=== PATIENT | female | born 1925 | race Caucasian/White ===

== ENCOUNTER 2016-06-12 17:03 | Emergency (ER) | payer MEDICARE ==
--- NOTE | ~2016-06-12 | CR72 ---
[facility] A Service of [facility] & [facility] RADIOLOGY TEXT RESULTS PATIENT: YAYO ESCOBEDO LOCATION: [facility] : [birth year] UNIT #: [id number] AGE: [address]: Rhoda Ching MD SEX: F ORDER DR: [id number] [facility] [address] [place], [place] [address] [id number] E MR#: [id number] Acc #: [id number] NAME: YAYO ESCOBEDO : 1925 SEX: F STUDY DATE/TIME: 06/12/2016 16:47 UNIT: [facility] ROOM: STUDY DESCRIPTION: CR Chest Single View Portable Attending Physician: Rhoda Ching M.D. Ordering Physician: Rhoda Ching M.D. Primary Care Physician: Johana Gomez Aprn MEDICAL IMAGING REPORT This report is preliminary unless electronic signature is present EXAM Portable chest radiograph. DATE OF EXAM 06/12/2016 INDICATION Shortness of air. FINDINGS Comparison is made to a prior study from April 14, 2016. Cardiomegaly is identified without any evidence of vascular congestion. There is elevation of the right hemidiaphragm with some associated bronchovascular crowding. I am not convinced I can see any acute infiltrates. There is no pneumothorax or pleural effusion. There is some scarring noted at the left lung base. Left-sided pacemaker is present. Dictated by... Deepa Cuba M.D. THIS IS AN ELECTRONICALLY VERIFIED REPORT Deepa Cuba M.D. at 06/13/2016 4:30 PM AFF/jt TD: 06/12/2016 21:31 JOB #: [id number] MEDICAL IMAGING REPORT Page 1 of 1 COPY
--- NOTE | ~2016-06-12 | EKG ---
PATIENT: YAYO ESCOBEDO UNIT #: [id number] Ventricular Rate: 62 BPM Atrial Rate: 62 BPM P-R Interval: 292 ms QRS Duration: 102 ms Q-T Interval: 414 ms QTC Calculation(Bezet): 420 ms Calculated R [place]: -24 degrees Calculated T [place]: -11 degrees Diagnosis Line: Atrial-paced rhythm with prolonged AV conduction Diagnosis Line: Minimal voltage criteria for LVH, may be normal Diagnosis Line: variant Diagnosis Line: Abnormal ECG Diagnosis Line: No previous ECGs available Diagnosis Line: Confirmed by KIKO POOL MD ([id number]) on 06/13/2016 Diagnosis Line: 7:16:06 PM INTERPRETING MD: CORINE MALONEY
[~2016-06-12 17:03] MED LIST: ACETAMINOPHEN PO; ACETAMINOPHEN500 M3 PO; ACIDOPHILUS LAC1 CAP PO; ADVIL100 MG PO; ALBUTEROL17 GM INH; ALOE VERA PO; ALOE VERA1 CAP PO; ALPRAZOLAM PO; ALPRAZOLAM0.5 MG PO; ALPRAZOLAM1 MG PO; ASPIRIN EC81 M1 PO; ASPIRIN PO; ASPIRIN81 M1 PO; ASPIRIN81 MG PO; BENICAR20 MG PO; BENZONATATE PO; BETAPACE AF160 MG PO; BETAPACE PO; BETAPACE80 MG PO; CIPRO PO; CLOPIDOGREL75 MG PO; COMBIVENT U/D3 ML INH; COMBIVENT14.7 GM INH; COUMADIN PO; CRESTOR5 MG PO; DULCOLAX5 MG; DULCOLAX5 MG PO; ELIQUIS2.5 MG PO; GABAPENTIN400 M2 PO; HYDRALAZINE HCL50 MG PO; KEFLEX500 M1 PO; LEVAQUIN250 MG PO; LEVOFLOXACIN500 MG PO; LEVOTHROID25 MCG PO; LEVOTHYROXINE25 MC1 PO; LISINOPRIL PO; LISINOPRIL10 MG PO; LOPRESSOR PO; MACROBID100 MG PO; MACRODANTIN50 MG PO; MEDROL DOSEPAK4 MG PO; METOPROLOL TART25 MG PO; MILK OF MAGNESIA PO; MIRALAX17 GM PO; MULTI-VITAMIN1 EAC1 PO; NEURONTIN100 MG PO; OMEPRAZOLE20 M2 PO; PANTOPRAZOLE SO40 MG PO; PATIENT'S PHARMACY; PHENERGAN25 M1 PO; PHYSICIAN; PREDNISONE PO; PRILOSEC PO; PYRIDIUM PO; SIMVASTATIN20 MG PO; SOMINEX PO; SOTALOL AF80 MG PO; STOOL SOFTENER100 M1 PO; SYNTHROID PO; SYNTHROID25 MCG PO; TIGAN PO; TIROSINT25 MCG PO; TOPROL XL PO; TRAMADOL HCL50 M2 PO; TRICOR145 MG PO; TRIMPEX100 MG PO; UNISOM25 M1 PO; UNISOM50 M1 PO; VAGIFEM10 MCG VG; VAGIFEM25 MCG VAG; VALTREX500 MG PO; VIBRAMYCIN100 M1 PO; VITAMIN B12-FO1 EACH PO; XANAX1 MG PO; XOPENEX NEB; XOPENEX0.63 MG/3 IH; XOPENEX1.25 MG/0. NEB; ZOFRAN ODT4 MG PO
[2016-06-12 17:16] LABS: BASOPHIL% 0.4 % (0-2.5); EOSINOPHIL% 0.8 % (0.0-7.0); HEMATOCRIT 39.1 % (35.0-45.0); HEMOGLOBIN 12.7 gm/dL (12.0-16.0); LYMPHOCYTE% 48.2 % (17.0-45.0); MEAN CELL VOLUME 81.8 FL (83-96); MEAN CORPUSCULAR HEMOGLOBIN 26.5 PG (28-34); MEAN CORPUSCULAR HGB CONC 32.4 g/dL (30-36); MEAN PLATELET VOLUME 7.9 FL (6.5-11.5); MONOCYTE# 0.5 X10e3 (0-1.0); MONOCYTE% 12.5 % (3.0-12.0); NEUTROPHIL# 1.6 X10e3 (1.5-7.1); NEUTROPHIL% 38.1 % (40-75); PLATELET COUNT 176 X10e3 (140-420); RED BLOOD COUNT 4.78 X10e (3.90-5.30); RED CELL DISTRIBUTION WIDTH 21.7 % (11.0-15.5); WHITE BLOOD COUNT 4.2 X10e3 (4.0-10.5)
[2016-06-12 17:19] LABS: DIFF IND NO
[2016-06-12 17:52] LABS: ALBUMIN SERUM 3.5 g/dL (3.5-5.0); BILIRUBIN, DIRECT 0.1 mg/dL (0.0-0.2); BILIRUBIN,INDIRECT 0.6 mg/dL (0.0-0.9); BILIRUBIN,TOTAL 0.7 mg/dL (0.2-2.0); CREATININE SERUM 0.5 mg/dL (0.6-1.4); GLOM FILT RATE Estimated 85.8 mL/min (>60); POTASSIUM 4.2 mmol/L (3.5-5.1); PROTEIN TOTAL SERUM 6.7 g/dL (6.0-8.3)
[2016-06-12 18:20] LABS: POC - CKMB <1.0 ng/mL (0.0-7.9); POC - TROPONIN <0.05 ng/mL (<=0.05)
[2016-06-12 19:21] LABS: POC - CKMB <1.0 ng/mL (0.0-7.9); POC - TROPONIN <0.05 ng/mL (<=0.05)
[2016-06-12 20:06] LABS: INFLUENZA A NEG (NEG); INFLUENZA B NEG (NEG)
[2016-10-15] MEDS ORDERED: AMLODIPINE BESYL5 MG (11:44)
[2016-10-15] MEDS ORDERED: SOTALOL AF80 M1 PO (11:45)
[2016-10-15] MEDS ORDERED: SYNTHROID25 MCG PO (11:45)
[2016-10-15] MEDS ORDERED: ZOCOR10 MG PO (11:46)
[2016-10-15] MEDS ORDERED: OYSTER SHELL C1 EAC1 PO (11:46)
[2016-10-15] MEDS ORDERED: HYDRALAZINE HCL50 MG PO (11:46)
[2016-10-15] MEDS ORDERED: ROPINIROLE HC0.25 MG PO (11:47)
[2016-10-15] MEDS ORDERED: OMEPRAZOLE40 M1 PO (11:47)
[2016-10-15] MEDS ORDERED: NON-ASPIRIN PA500 M1 PO (11:48)
[2016-10-15] MEDS ORDERED: COUMADIN (11:50)
== END 2016-06-12 20:35 | disposition home or self-care (01) ==
LOC: CED 17:03
PROVIDERS: Emergency Medicine
DX: J06.9 Acute upper respiratory infection, unspecified (principal); I48.91 Unspecified atrial fibrillation; I10 Essential (primary) hypertension; J44.9 Chronic obstructive pulmonary disease, unspecified; E78.5 Hyperlipidemia, unspecified; E03.9 Hypothyroidism, unspecified; K21.9 Gastro-esophageal reflux disease without esophagitis; Z90.710 Acquired absence of both cervix and uterus; Z90.49 Acquired absence of other specified parts of digestive tract; Z98.890 Other specified postprocedural states
CPT/HCPCS: 36415; 71010; 80048; 80076; 82553; 83880; 84484; 85025; 87804; 93005; 96361; 96374; 96375; 99284; J2270; J2405

== ENCOUNTER → 2016-10-15 | Outpatient (CLI) | payer MEDICARE ==
[~2016-10-15] MED LIST changes: +AMLODIPINE BESYL5 MG; +COUMADIN; +NON-ASPIRIN PA500 M1 PO; +OMEPRAZOLE40 M1 PO; +OYSTER SHELL C1 EAC1 PO; +ROPINIROLE HC0.25 MG PO; +SOTALOL AF80 M1 PO; +ZOCOR10 MG PO
--- NOTE | ~2016-10-15 | US84 ---
[id number] [facility]. [facility] [address]. [place], [place] [address] [id number] O MR#: [id number] Acc #: [id number] NAME: YAYO ESCOBEDO : 1925 SEX: F STUDY DATE/TIME: 10/15/2016 10:49 UNIT: [facility] ROOM: STUDY DESCRIPTION: US LE Veins Complete Daljit Stdy Attending Physician: Uday Nunez M.D. Referring Physician: Uday Nunez M.D. Ordering Physician: Uday Nunez M.D. Primary Care Physician: Johana Gomez Aprn MEDICAL IMAGING REPORT This report is preliminary unless electronic signature is present EXAM Bilateral leg vein Doppler 10/15 INDICATIONS Bilateral leg swelling intermittently for the last 3 months. TECHNIQUE Venous ultrasound examination of both lower extremities was performed using grayscale, spectral Doppler and color flow Doppler imaging. FINDINGS The examination is negative. There is no evidence of deep venous thrombus from the groin to the lower calf bilaterally. Visualized greater saphenous veins are also patent. IMPRESSION Negative examination. No evidence of lower extremity deep venous thrombosis. Dictated by... Abundio Beverly Jr., M.D. THIS IS AN ELECTRONICALLY VERIFIED REPORT Abundio Beverly Jr., M.D. at 10/17/2016 2:25 PM GE/pelon TD: 10/15/2016 16:47 JOB #: [id number] MEDICAL IMAGING REPORT Page 1 of 1 COPY
--- NOTE | ~2016-10-15 | CR63 ---
[facility] A Service of [facility] RADIOLOGY TEXT RESULTS PATIENT: YAYO ESCOBEDO LOCATION: [facility] : [birth year] UNIT #: [id number] AGE: [address]: Uday Nunez MD SEX: F ORDER DR: [id number] [facility] [address] [place], [place] [address] [id number] O MR#: [id number] Acc #: [id number] NAME: YAYO ESCOBEDO : 1925 SEX: F STUDY DATE/TIME: 10/15/2016 10:14 UNIT: [facility] ROOM: STUDY DESCRIPTION: CR Chest 2 View Attending Physician: Uday Nunez M.D. Referring Physician: Uday Nunez M.D. Ordering Physician: Uday Nunez M.D. Primary Care Physician: Johana Gomez Aprn MEDICAL IMAGING REPORT This report is preliminary unless electronic signature is present EXAM Chest 10/15/2016 HISTORY 89-year-old woman preop clearance for right total knee arthroplasty. Osteoarthritis right knee. COMPARISON Chest 06/12/2016. FINDINGS PA and lateral chest views show mild stable cardiomegaly and mild aortic ectasia. Permanent pacemaker is positioned on the left with dual pacing leads well located. Bilateral lungs are expanded and clear. Partial eventration right hemidiaphragm is again noted. Generalized demineralization with mild compression of a single mid thoracic vertebrae. IMPRESSION No acute chest finding. Mild cardiac enlargement and aortic ectasia with dual pacing leads well positioned. Chronic eventration right hemidiaphragm. Dictated by... Andrea Pearce M.D. THIS IS AN ELECTRONICALLY VERIFIED REPORT Andrea Pearce M.D. at 10/15/2016 3:13 PM NOÉ/pelon TD: 10/15/2016 15:10 JOB #: [id number] MEDICAL IMAGING REPORT [facility] A Service [facility] RADIOLOGY TEXT RESULTS PATIENT: YAYO ESCOBEDO LOCATION: [facility] : [birth year] UNIT #: [id number] AGE: [address]: Uday Nunez MD SEX: F ORDER DR: Page 1 of 1 COPY
--- NOTE | ~2016-10-15 | CO ---
Unit #: [id number] #: [id number] Patient: YAYO ESCOBEDO [place] [id number] [address] [address] [id number] O MR#: [id number] NAME: YAYO ESCOBEDO ROOM: Age: 89 Sex: F Admission Date: 10/15/2016 : 1925 Attending Physician: Uday Nunez M.D. Primary Care Physician: Johana Gomez Aprn Consultation Date: 10/15/2016 CONSULTATION REPORT REASON FOR CONSULTATION Preoperative medical evaluation prior to right total knee arthroplasty scheduled by Dr. Nunez for 10/27/2016. HISTORY OF PRESENT ILLNESS The patient is an 89-year-old female, who presents to preprocedural screening for the reasons indicated above. She reports pain in her right knee at the time of the interview. She denies dyspnea on exertion, orthopnea, PND, or snoring. She denies upper chest, upper back, arm, neck, jaw pain or pressure. Denies lightheadedness and dizziness. Denies presyncope or syncope. She denies heart palpitations, although she has a history of paroxysmal atrial fibrillation per review of records in [facility]. She denies history of myocardial infarction, congestive heart failure, CVA, TIA, kidney disease, and diabetes. She has been evaluated by Dr. Nunez, and scheduled for the above-referenced procedure. PAST MEDICAL HISTORY 1. Osteoarthritis primary of the right knee. 2. History of recurrent urinary tract infections. 3. Hypertension. 4. Hypothyroidism. 5. Hyperlipidemia. 6. Chronic Coumadin therapy, managed by [facility], who is her primary care provider. 7. Coronary artery disease, without history of myocardial infarction. 8. History of colon cancer. 9. Anxiety. 10. 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 11. Questionable history of DVT. 12. COPD. PAST SURGICAL HISTORY 1. Permanent pacemaker insertion in 2012. 2. Hysterectomy. 3. Appendectomy. 4. Cholecystectomy. 5. Right hemicolectomy in 2014. ALLERGIES Penicillins, cause swellings; sulfa, unknown reaction; propoxyphene, unknown reaction; Cipro causes fatigue. CURRENT MEDICATIONS Unit #: [id number] #: [id number] Patient: YAYO ESCOBEDO 1. Amlodipine besylate 5 mg p.o. b.i.d. 2. Sotalol AF 40 mg p.o. b.i.d. 3. Synthroid 25 mcg p.o. daily. 4. Hydralazine HCL 50 mg p.o. daily. 5. Oyster shell calcium/vitamin D 1 p.o. daily. 6. Zocor 10 mg p.o. daily. 7. Ropinirole 0.25 mg p.o. at bedtime. 8. Omeprazole 40 mg p.o. at bedtime. 9. Non-aspirin pain reliever 500 mg p.o. q.4 hours p.r.n. pain. 10. Coumadin 10 mg on Thursday, Thursday, and Thursday; and 7.5 mg on Thursday, , Thursday, and Thursday. SOCIAL HISTORY Denies tobacco use, EtOH use, and illicit drug use. FAMILY HISTORY Per review of Dr. Nunez's office notes, diabetes, hypertension, high cholesterol, and coronary artery disease. REVIEW OF SYSTEMS A 10-point review of systems is conducted and otherwise negative except as indicated under history of present illness above. PHYSICAL EXAMINATION GENERAL: An 89-year-old female, awake, alert, in wheelchair, in no acute distress. VITAL SIGNS: Temperature 97.6, heart rate 61, respiratory rate 18, blood pressure 167/69, oxygen saturation 98% on room air. HEENT: Atraumatic and normocephalic. Sclerae are anicteric. No discharge from eyes, ears, or nares. LYMPH: No preauricular, postauricular, tonsillar, submental, anterior or posterior cervical adenopathy. ENDOCRINE: No thyromegaly, thyroid nodules, or tenderness. RESPIRATORY: Clear to auscultation in all maloney bilaterally without wheezes, rhonchi, or rales. CARDIOVASCULAR: S1 and S2. Regular rate and rhythm without murmur or rub. GI: Bowel sounds are positive x4. Soft, nontender, nondistended. EXTREMITIES: 1+ bilateral lower extremity edema without cyanosis or clubbing. MUSCULOSKELETAL: Strength 5/5 in all extremities bilaterally to flexion and extension. NEUROLOGIC: Alert and oriented x3. Speech clear. Follows directions during examination. DIAGNOSTIC STUDIES LABORATORY RESULTS: WBC 6.8, hemoglobin 13.0, hematocrit 39.0, platelets 203,000. Sodium 140, potassium 4.2, chloride 104, CO2 of 29, glucose 114, BUN 15, creatinine 0.7, calcium 9.2, AST 28, ALT 23, alkaline phosphatase 59, bilirubin total 0.7, total protein 6.7, albumin 3.7, PT 16.3, INR 1.5. Blood type B positive, antibody screen negative. Urinalysis; leukocyte esterase trace, nitrite positive, blood negative, rbc's negative, wbc's 5 to 10, bacteria 4+, squamous cells none seen. Urine culture and sensitivity pending at this time. MRSA nasal swab report pending at this time. IMAGING STUDIES: Two-view chest x-ray report pending at this time. Unit #: [id number] #: [id number] Patient: YAYO SECOBEDO CARDIOVASCULAR STUDIES: 12-lead EKG tracing pending at this time. Bilateral lower extremity duplex venous Doppler result pending at this time. IMPRESSION The patient is an 89-year-old female, who presents to preprocedural screening. 1. Preoperative medical evaluation prior to right total knee arthroplasty. The patient's Valdez revised cardiac risk index is equal to 0.4% based on no risk factors and represents rate of cardiac , nonfatal myocardial infarction, nonfatal cardiac arrest according to number of risk factors. This has been discussed in detail with the patient. She wishes to proceed with surgery as scheduled at this time. 2. Urinary tract infection. Urine culture and sensitivity report is pending at this time. I have called a prescription for Macrobid 100 mg one p.o. b.i.d. x7 days #14, no refills, to her pharmacy [facility] [place] at [phone]. The patient states that she has her medications delivered to her home and that she will receive it tomorrow. She has been advised to start the medication when she receives it. We will follow urine culture and sensitivity results. 3. Hypertension. Blood pressure is stable. Continue current medications postoperatively and adjust accordingly based on blood pressure and renal function. 4. Hypothyroidism. Check TSH and free T4 of blood in lab today. Continue current dose of Synthroid. 5. Hyperlipidemia. 6. Chronic Coumadin therapy. The patient's INR is 1.5 today. Again, this patient's Coumadin is being monitored and dosed by [facility]. 7. Coronary artery disease, without history of myocardial infarction. The patient has been evaluated by Dr. Russell, and there is a note with the patient's chart dated 09/24/2016 that the patient is clear for knee surgery at acceptable cardiac risk. 8. History of colon cancer. 9. Anxiety. 10. History of paroxysmal atrial fibrillation. We will recommend telemetry postoperatively. 11. Chronic obstructive pulmonary disease, stable. We will add inhaled bronchodilators and mucolytics postoperatively in addition to IS. Thank you for allowing us to participate in the care of this patient. We will gladly follow her for postop medical management, pending order of Dr. Nunez and results of pending diagnostic studies. Dictated by... Olamide Sanford/dontae TD: 10/16/2016 12:42 JOB #: [id number] Unit #: [id number] #: [id number] Patient: YAYO ESCOBEDO CONSULTATION REPORT Page 1 of 1 X Micki Mendez APRN CONSULTATION REPORT
[2016-10-15 11:34] LABS: MEAN CELL VOLUME 82.7 FL (83-96); MEAN CORPUSCULAR HEMOGLOBIN 27.5 PG (28-34); MEAN CORPUSCULAR HGB CONC 33.3 g/dL (30-36); RED BLOOD COUNT 4.72 X10e (3.90-5.30); RED CELL DISTRIBUTION WIDTH 17.8 % (11.0-15.5); WHITE BLOOD COUNT 6.8 X10e3 (4.0-10.5)
[2016-10-15 11:46] LABS: INR 1.5; PROTHROMBIN TIME (PATIENT) 16.3 SECONDS (10.0-11.7)
[2016-10-15 12:09] LABS: ALBUMIN SERUM 3.7 g/dL (3.5-5.0); BILIRUBIN,TOTAL 0.7 mg/dL (0.2-2.0); BUN/CREATININE RATIO 21.42; CALCIUM SERUM 9.2 mg/dL (8.4-10.2); CREATININE SERUM 0.7 mg/dL (0.6-1.4); GLOM FILT RATE Estimated 76.8 mL/min (>60); POTASSIUM 4.2 mmol/L (3.5-5.1); PROTEIN TOTAL SERUM 6.7 g/dL (6.0-8.3)
[2016-10-15 12:43] LABS: URINE APPEARANCE CLEAR; URINE BILIRUBIN NEG (NEG); URINE BLOOD NEG (NEG); URINE COLOR YELLOW; URINE GLUCOSE NEG (NEG); URINE KETONE NEG (NEG); URINE LEUKOCYTE ESTERASE TRACE (NEG); URINE NITRATE POS (NEG); URINE PH 6.5 (5-8); URINE PROTEIN NEG (NEG); URINE SPECIFIC GRAVITY 1.008 (1.003-1.035); URINE UROBILINOGEN 0.2 MG/DL (NEG)
[2016-10-15 12:44] LABS: CULTURE INDICATED? YES; URBCS1 AUWI 0-2 /[HPF] (0-2); URINE BACTERIA AUWI 4+ (NEGATIVE); URINE SQUAMOUS EPITHELIAL CELL NONE SEEN /[HPF]
[2016-10-15 12:47] LABS: URINE SOURCE CLEAN CATCH
== END | disposition home or self-care (01) ==
LOC: CAMB 09:37
PROVIDERS: Orthopaedic Surgery
DX: Z01.818 Encounter for other preprocedural examination (principal); M17.11 Unilateral primary osteoarthritis, right knee; Z88.2 Allergy status to sulfonamides; Z88.1 Allergy status to other antibiotic agents; Z91.040 Latex allergy status; I51.7 Cardiomegaly; I77.819 Aortic ectasia, unspecified site
CPT/HCPCS: 36415; 71020; 80053; 81003; 85027; 85610; 86850; 86900; 86901; 87070; 87086; 87088; 87186; 93970

== ENCOUNTER 2016-10-27 08:12 | Inpatient (IN) | payer MEDICARE ==
[~2016-10-27] VITALS: Ht 160 cm; Wt 71.0 kg
--- NOTE | ~2016-10-27 | OR ---
Unit #: [id number] #: [id number] Patient: YAYO ESCOBEDO [id number] [address] [place], [place] [address] [id number] I MR#: [id number] NAME: YAYO ESCOBEDO ROOM: [facility] Date of Procedure: 10/27/2016 Admission Date: 10/27/2016 Surgeon: Uday Nunez M.D. : 1925 Attending Physician: Uday Nunez M.D. Primary Care Physician: Johana Gomez, Machine Maintenance Supervisor OPERATIVE REPORT POSTOPERATIVE DIAGNOSIS Primary localized osteoarthritis of the right knee. POSTOPERATIVE DIAGNOSIS Primary localized osteoarthritis of the right knee. PROCEDURE PERFORMED Right total knee. ASSISTANTS Leonel Deluna and Pollo Moody. ANESTHESIA Adductor canal block plus general. ESTIMATED BLOOD LOSS 100 mL. OPERATIVE INDICATION The patient brought to the holding room. She has severe arthritis of her right knee. The pain limits her walking and standing. She has tried injections and anti-inflammatories with no relief of her discomfort. X-rays show she has [id number] with subchondral sclerosis. DESCRIPTION OF PROCEDURE The patient was brought to the holding room, given 1 g of vancomycin. She was then given an adductor canal block. She was brought back to the operating room, given a general anesthetic. Tourniquet placed around the right thigh. The right leg was prepped and draped in a sterile fashion. Tourniquet inflated to 300. A straight anterior skin incision was made. The subcutaneous dissected away and a medial arthrotomy performed. Patella was slid to the side. Osteophytes removed from the femur. The intramedullary guide was used. The 6-degree valgus cut was made on the distal femur. The femur was sized and then found to be a size 3. The anterior-posterior cutting block was applied. Rotation was checked in the knee. Anterior and posterior cuts were made along with the chamfer cuts. Proximal tibial cut was made using the external guide. It was sized at a 2. Any remaining meniscal fragments were debrided. Osteophytes were removed from the posterior femoral condyles. Posterior capsule and periosteum were injected with ropivacaine. The trial femur was applied. The drill holes were made for lugs on the femoral component. Trial tibia was applied with an 8 insert. The knee came to full extension and good Unit #: [id number] #: [id number] Patient: YAYO ESCOBEDO stability in extension and flexion. Rotation of the tibia was marked, and the external alignment guide showed appropriate alignment of the limb. The patella was grasped with 2 towel clips, measured 21 mm thick, cut, smooth at 14 and a 35 patella was the appropriate size. The 3 drill holes were made. Trial patella applied, and it tracked properly. We then removed all the trials, used the drill and punched for the tibial tray. The knee was irrigated and dried while the cement was mixed. Then, all 3 components were cemented simultaneously. Once again, it was a size 3 femur, cruciate retaining, size 2, all poly tibia, 8 mm thick, and a 35 patella. Any excess cement was removed. After the cement was hardened, the tourniquet was released. Hemostasis was obtained. The rest of the ropivacaine mixture was injected, and then the wound was closed using 0 Ethibond in the arthrotomy, 0 and 2-0 Vicryl in the subcutaneous, and russell in the skin the. histology assistant, Leonel Deluna, was present throughout the entire case. Dictated by... Erika Kohli/dontae TD: 10/28/2016 06:02 JOB #: [id number] OPERATIVE REPORT Page 1 of 1 X Uday Nunez MD PROCEDURE OPERATIVE NOTE
--- NOTE | ~2016-10-27 | DS ---
Unit #: [id number] #: [id number] Patient: YAYO ESCOBEDO [id number] [facility]. [place], [place] [address] [id number] I MR#: [id number] NAME: YAYO ESCOBEDO ROOM: 448 Age: 89 Sex: F Admission Date: 10/27/2016 : 1925 Discharge Date: 10/29/2016 Attending Physician: Uday Nunez M.D. Primary Care Physician: Johana Gomez, Custom Home Installer DISCHARGE SUMMARY ADMITTING DIAGNOSIS Severe osteoarthritis of her right knee. PROCEDURE Right total knee arthroplasty. HOSPITAL COURSE The patient was admitted to [facility] with a history of severe osteoarthritis of right knee. The patient has undergone the above procedure. The patient tolerated the procedure well and no current complications. Today, she is in stable condition. Her temperature is 98.4, blood pressure 140/68, heart rate 62 and regular, respirations 18. Her incision is healing well and neurovascular exam is intact. She has 2+ pulses in her lower extremity. The plan will be to discharged her to SNU later today. PERTINENT LABS Her INR is 1.3 and her hemoglobin is 11. MEDICATIONS She will be on her regular home medications including Coumadin for DVT prophylaxis. FOLLOWUP INSTRUCTIONS 1. The patient will be discharged to SNU. 2. The patient will need PT and INR done on 10/30, 10/31 and then every Thursday and thereafter. Call the results to [phone] or fax to [phone] attention Mar. 3. The patient should wear her SANDI hose during the day and off at night. 4. The patient should not drive until seen by Dr. Nunez in six weeks. The patient will participate in physical therapy including active, active assist range of motion and strengthening, progressive ambulation, begin with a walker, progress to a cane as tolerated. Dictated by... Leonel Deluna P.A.-C- for Uday Nunez M.D. ABBEY/mikhail TD: 10/29/2016 07:03 Unit #: [id number] #: [id number] Patient: YAYO ESCOBEDO JOB #: [id number] DISCHARGE SUMMARY Page 1 of 1 X X DISCHARGE SUMMARY
[2016-10-27 09:10] LABS: URINE SOURCE CATH
[2016-10-27 09:12] LABS: INR 0.9; PROTHROMBIN TIME (PATIENT) 10.3 SECONDS (10.0-11.7)
[2016-10-27 09:20] LABS: URINE APPEARANCE CLEAR; URINE BILIRUBIN NEG (NEG); URINE BLOOD NEG (NEG); URINE COLOR YELLOW; URINE GLUCOSE NEG (NEG); URINE KETONE NEG (NEG); URINE LEUKOCYTE ESTERASE 1+ (NEG); URINE NITRATE POS (NEG); URINE PROTEIN NEG (NEG); URINE SPECIFIC GRAVITY 1.016 (1.003-1.035); URINE UROBILINOGEN 0.2 MG/DL (NEG)
[2016-10-27 09:24] LABS: CULTURE INDICATED? YES; URBCS1 AUWI 0-2 /[HPF] (0-2); URINE BACTERIA AUWI 4+ (NEGATIVE); URINE SQUAMOUS EPITHELIAL CELL NONE SEEN /[HPF]
[2016-10-27 09:34] LABS: THYROID STIMULATING HORMONE 2.29 uIU/ml (0.34-5.60)
[2016-10-27 09:41] LABS: FREE THYROXIN (T4) 1.03 ng/dL (0.58-1.64)
[2016-10-28 03:42] LABS: HEMATOCRIT 33.6 % (35.0-45.0); HEMOGLOBIN 11.2 gm/dL (12.0-16.0)
[2016-10-28 03:45] LABS: INR 1.1; PROTHROMBIN TIME (PATIENT) 11.5 SECONDS (10.0-11.7)
[2016-10-28 03:55] LABS: CREATININE SERUM 0.7 mg/dL (0.6-1.4); GLOM FILT RATE Estimated 76.8 mL/min (>60); MAGNESIUM 1.6 mg/dL (1.6-3.0); POTASSIUM 3.9 mmol/L (3.5-5.1)
[2016-10-29 03:42] LABS: HEMATOCRIT 32.7 % (35.0-45.0)
[2016-10-29 03:46] LABS: INR 1.3; PROTHROMBIN TIME (PATIENT) 13.8 SECONDS (10.0-11.7)
[2016-10-29 04:44] LABS: BUN/CREATININE RATIO 27.5; CALCIUM SERUM 8.4 mg/dL (8.4-10.2); CREATININE SERUM 0.8 mg/dL (0.6-1.4); GLOM FILT RATE Estimated 65.4 mL/min (>60); MAGNESIUM 2.1 mg/dL (1.6-3.0); POTASSIUM 4.7 mmol/L (3.5-5.1)
== END 2016-10-29 12:20 | DRG 470 ==
LOC: CSUR 08:12 → CPACUOF 09:43 → CSUR 10:00 → CPACUOF 14:18 → C4B 14:18
PROVIDERS: Nurse Practitioner; Orthopaedic Surgery
PROC: 0SRC0J9 Replacement of Right Knee Joint with Synthetic Substitute, Cemented, Open Approach (ICD-10-PCS; principal; 2016-10-27 10:30)
DX: M17.11 Unilateral primary osteoarthritis, right knee (principal); N39.0 Urinary tract infection, site not specified; I48.0 Paroxysmal atrial fibrillation; E87.1 Hypo-osmolality and hyponatremia; D62 Acute posthemorrhagic anemia; I10 Essential (primary) hypertension; E03.9 Hypothyroidism, unspecified; E78.5 Hyperlipidemia, unspecified; Z79.01 Long term (current) use of anticoagulants; I25.10 Atherosclerotic heart disease of native coronary artery without angina pectoris; Z85.038 Personal history of other malignant neoplasm of large intestine; J44.9 Chronic obstructive pulmonary disease, unspecified; Z95.0 Presence of cardiac pacemaker; Z90.710 Acquired absence of both cervix and uterus; Z90.49 Acquired absence of other specified parts of digestive tract; Z88.0 Allergy status to penicillin; Z88.2 Allergy status to sulfonamides; Z91.040 Latex allergy status; B96.1 Klebsiella pneumoniae [K. pneumoniae] as the cause of diseases classified elsewhere
CPT/HCPCS: 80048; 81003; 83735; 84439; 84443; 85014; 85018; 85610; 87086; 87088; 87186; 94760; 97110; 97116; 97163; 97530; C1713; C1776; G8978-GP; G8979-GP; J0131; J0171; J0330; J0696; J0735; J1100; J1170; J1650; J1885; J2405; J2795; J3010; J3370; J3475